=== PATIENT | male | born 1980 | race African-American/Black ===

== ENCOUNTER 2016-12-01 21:26 | Emergency (ER) | payer BC ==
[~2016-12-01] VITALS: Ht 177.8 cm; Wt 96.8 kg
[2016-12-01 21:50] LABS: HEMATOCRIT 46.4 % (38.0-50.0); MCH 30.9 PG (29.0-34.0); MCHC 34.5 G/DL (30.0-36.0); MCV 89.6 FL (86-99); MEAN PLAT.VOLUME 9.5 uM^3 (9.0-12.4); PLATELET COUNT 255 K/uL (156-360); RBC DIS.WIDTH-CV 12.8 % (11.8-14.6); RBC DIS.WIDTH-SD 42.1 % (39-53); RED BLOOD COUNT 5.18 M/uL (4.00-5.50); WHITE BLOOD COUNT 11.6 K/uL (4.1-10.2)
[2016-12-01 22:00] LABS: CHLORIDE 103 mEq/L (99-109); POTASSIUM 3.6 mEq/L (3.7-5.4); SODIUM 139 mEq/L (136-147)
[2016-12-01 22:02] LABS: GLUCOSE 92 mg/dL (70-99)
[2016-12-01 22:04] LABS: ANION GAP 10 MEQ/L (2-14); TOTAL BILIRUBIN 0.5 mg/dL (0.0-1.0)
[2016-12-01 22:06] LABS: ALKALINE PHOSPHATASE 66 IU/L (3-129); GFR ESTIMATE (CALCULATED) > 59 mL/min/
[2016-12-01 22:07] LABS: UREA NITROGEN (BUN) 15 mg/dL (9-23)
[2016-12-01 22:28] LABS: ADD MIUA? YES; BILIRUBIN NEGATIVE; BLOOD SMALL; COLOR YELLOW ((YELLOW)); GLUCOSE (STRIP) NEGATIVE; KETONES NEGATIVE; LEUKOCYTES SMALL; NITRITE NEGATIVE; PROTEIN (STRIP) NEGATIVE; SPECIFIC GRAVITY 1.024 (1.000-1.030)
[2016-12-01 22:32] LABS: BACTERIA RARE /HPF; EPITHELIAL CELLS RARE /HPF; MUCUS TRACE /LPF; UCUL ADDED? NO
[2016-12-02] MEDS ORDERED: NORCO 5/3251 TABLET PO (00:18)
[2016-12-02] MEDS ORDERED: NAPROSYN500 MG PO (00:18)
[2016-12-02] MEDS ORDERED: VIBRAMYCIN100 MG PO (00:18)
[2016-12-02 00:49] VITALS: BP 160/89
[2016-12-02 13:01] LABS: CHLAMYDIA TRACHOMATIS NEGATIVE; NEISSERIA GONORRHOEAE NEGATIVE
== END 2016-12-02 00:53 | disposition home or self-care (01) ==
LOC: EME 21:26
PROVIDERS: Emergency Medicine
DX: N45.1 Epididymitis (principal); F17.200 Nicotine dependence, unspecified, uncomplicated
CPT/HCPCS: 76870; 80053; 81003; 85027; 87491; 87591; 99281; 99284; J0696; J1885